=== PATIENT | male | born 1970 | race Asian ===

== ENCOUNTER → 2017-12-24 | Outpatient (CLI) | payer OTHER ==
[~2017-12-24] MED LIST: CETI10TA99 PO; TAMS0.4C38 PO
--- NOTE | 2017-12-24 19:22 | DIAGNOSTIC IMAGING REPORT ---
[facility] CLINICAL HISTORY: Right kidney stones. COMPARISON STUDY: [facility]UB February 19, 2016. FINDINGS: Pelvic calcifications are unchanged since prior exam and therefore likely reflect phleboliths. No urinary calculi are identified. Bowel gas pattern is normal. IMPRESSION: No urinary calculi identified. Electronically signed by: Charlie Page M.D. 12/24/2017 7:21 PM Dictated Date/Time: 12/24/2017 7:20 PM
== END | disposition home or self-care (01) ==
LOC: C.RAD 18:08
PROVIDERS: ATTEND Nurse Practitioner Family
DX: R10.9 Unspecified abdominal pain (principal); Z87.442 Personal history of urinary calculi